=== PATIENT | female | born 1985 | race Caucasian/White ===

== ENCOUNTER 2018-01-10 12:03 | Emergency (ER) | payer OTHER ==
[2018-01-10] MEDS ORDERED: LIDOCAINE HCL MPF 1% 5ML VIAL ONE (13:43)
[2018-01-10] MEDS ORDERED: TETANUS/DIPHTHERIA TOXOID [ADULT] 0.5 ML VIAL IM ONE (13:43)
[2018-01-10] MEDS ORDERED: IBUPROFEN 600 MG TABLET ONE (13:51)
== END 2018-01-10 15:05 | disposition home or self-care (01) ==
LOC: EDH 12:03
DX: S61.211A Laceration without foreign body of left index finger without damage to nail, initial encounter (principal); W26.0XXA Contact with knife, initial encounter; Y93.G3 Activity, cooking and baking; Y92.098 Other place in other non-institutional residence as the place of occurrence of the external cause; Y99.8 Other external cause status
CPT/HCPCS: 12002; 73140; 90471; 90714; 99284; J3490

== ENCOUNTER 2019-05-20 11:48 | Emergency (ER) | payer OTHER ==
[2019-05-20 12:46] LABS: APPEARANCE,URINE Clear (CLEAR); BILIRUBIN,URINE Negative (NEGATIVE); GLUCOSE, URINE (UA) Negative (NEGATIVE); KETONES,URINE Negative (NEGATIVE); LEUKOCYTE ESTERASE ,URINE Trace (NEGATIVE); NITRATE,URINE Positive (NEGATIVE); OCCULT BLOOD,URINE Negative (NEGATIVE); PROTEIN,URINE Negative (NEGATIVE)
[2019-05-20 12:53] LABS: BACTERIA,URINE Rare /HPF (None Seen); HCG,QUAL RESULT NEGATIVE (NEGATIVE); RBC,URINE 0-1 /HPF (0-1); WBC,URINE 0-1 /HPF (0-1)
[2019-05-20 12:54] LABS: COLOR,URINE ORANGE (YELLOW); SQUAMOUS EPITHELIAL CELL,UR Rare /HPF (0-2)
[2019-05-20] MEDS ORDERED: LIDOCAINE HCL-MPF 1% 2ML VIAL ONE (13:10)
[2019-05-20] MEDS ORDERED: CEFTRIAXONE SODIUM 1 GM ONE (13:10)
[2019-05-20] MEDS ORDERED: ACETAMINOPHEN EXTRA STRENGTH 500 MG TABLET ONE (13:11)
[2019-05-20] MEDS ORDERED: ONDANSETRON ODT 4 MG TAB ONE (13:11)
== END 2019-05-20 13:49 | disposition home or self-care (01) ==
LOC: EDH 11:48
DX: N39.0 Urinary tract infection, site not specified (principal); Z87.891 Personal history of nicotine dependence
CPT/HCPCS: 81001; 81025; 96372; 99284; J0696; J3490

== ENCOUNTER 2019-09-23 10:47 | Emergency (ER) | payer OTHER ==
[2019-09-23] MEDS ORDERED: PHENAZOPYRIDINE HCL 200 MG TABLET ONE (11:42)
[2019-09-23 12:08] LABS: HCG,QUAL RESULT NEGATIVE (NEGATIVE)
[2019-09-23 12:13] LABS: APPEARANCE,URINE CLEAR (CLEAR); BILIRUBIN,URINE NEGATIVE (NEGATIVE); COLOR,URINE YELLOW (YELLOW); GLUCOSE, URINE (UA) NEGATIVE (NEGATIVE); KETONES,URINE NEGATIVE (NEGATIVE); LEUKOCYTE ESTERASE ,URINE SMALL (NEGATIVE); NITRATE,URINE NEGATIVE (NEGATIVE); OCCULT BLOOD,URINE SMALL (NEGATIVE); PH,URINE 7.5 (5.0-8.0); PROTEIN,URINE NEGATIVE (NEGATIVE); UROBILINOGEN,URINE 0.2 mg/dL (0.2-1.0)
[2019-09-23 12:46] LABS: BACTERIA,URINE Few /HPF (None Seen)
[2019-09-23 12:47] LABS: RBC,URINE 0-1 /HPF (0-1); WBC,URINE 0-1 /HPF (0-1)
[2019-09-23] MEDS ORDERED: CEPHALEXIN 500 MG CAPSULE ONE (13:17)
== END 2019-09-23 13:23 | disposition home or self-care (01) ==
LOC: EDH 10:47
DX: N39.0 Urinary tract infection, site not specified (principal); R03.0 Elevated blood-pressure reading, without diagnosis of hypertension
CPT/HCPCS: 81001; 81025; 87088